=== PATIENT | female | born 1970 | race Caucasian/White ===

== ENCOUNTER 2024-07-24 20:00 | Emergency (ER) | payer OTHER, SELFPAY ==
[2024-07-24] VITALS (15 sets, daily range): BP systolic 117–135; BP diastolic 70–92; PULSE 65–81; RESP 13–20; TEMP 36.9; O2SAT 95–100
--- NOTE | ~2024-07-24 | XR_ITS ---
XR chest 2V DATE: 07/24/2024 20:32 INDICATION: Chest pain, shortness of breath TECHNIQUE: 2 views COMPARISON: None FINDINGS: Approximately 1.3 cm soft tissue density overlies the right infrahilar area. CT thorax with IV contrast material is recommended for further evaluation. Otherwise no pulmonary infiltrate or consolidation, pleural effusion or pulmonary vascular congestion or pneumothorax is detected. Heart size is normal. No hilar or mediastinal enlargement is noted otherwise. Included skeletal structures are unremarkable. Status post cholecystectomy. IMPRESSION: Approximately 1.3 cm right infrahilar soft tissue mass density Reviewed, dictated and finalized at location A. CAR DRIVER
--- NOTE | ~2024-07-24 | CT_ITS ---
EXAMINATION: CTA chest PE protocol DATE: 07/24/2024 22:06 INDICATION: Chest pain. TECHNIQUE: Computed tomography angiography (CTA) of the chest was performed with 100 mL Omnipaque-350 intravenous contrast timed to evaluate the pulmonary arteries. Coronal maximum intensity projection 3D-reconstructions were created by the technologist. Automated exposure control and iterative reconst ruction technique were employed. The dose-length product was 393.72 mGy-cm. COMPARISON: Chest 2 views 07/24/2024 FINDINGS: There is a 13 mm nodule in right lower lobe with small surrounding satellite nodules. There is right hilar lymphadenopathy with the largest node measuring 15 x 11 mm. No pleural effusion. The heart size is normal. No pericardial effusion. There is no pulmonary embolus. There is a small slidin g hiatal hernia. There are changes of cholecystectomy. IMPRESSION: 1. 13 mm nodule in right lung lower lobe, which may be granulomatous disease or primary bronchogenic carcinoma. PET/CT or 3-month noncontrast low-dose chest CT is recommended. 2. Mild right hilar lymphadenopathy. 3. No pulmonary embolus. Reviewed, dictated and finalized at location A. ASOUND APPLICATIONS SPECIALIST IMPRESSION: 1. 13 mm nodule in right lung lower lobe, which may be granulomatous disease or primary bronchogenic carcinoma. PET/CT or 3-month noncontrast low-dose chest C T is recommended. 2. Mild right hilar lymphadenopathy. 3. No pulmonary embolus.
--- NOTE | 2024-07-24 20:07 | ECG_ITS ---
Test Date: 2024-07-24 20:11:58 Measurements Intervals [place] Rate: 72 P: 34 [place]: 133 QRS: 11 QRSD: 87 T: 12 QT: 408 QTc: 449 Interpretive Statements SINUS RHYTHM NONSPECIFIC T-WAVE ABNORMALITY No previous ECG available for comparison Electronically Signed On 07-24-2024 21:05:22 SALES OFFICER by Anastasia Culver M.D.
[2024-07-24 20:17] LABS: Basophils Absolute Auto 0.1 K/mm3 (0.0-0.1); Basophils Percent Auto 0.3 % (0.2-1.2); Eosinophils Percent Auto 0.2 % (0-4.4); Hematocrit 43.9 % (37.0-47.0); Hemoglobin 14.4 g/dL (12.0-15.0); Immature Granulocyte Absolute 0.11 K/mm3 (0.00-0.031); Immature Granulocyte Percent A 0.6 % (0-0.5); Lymphocytes Absolute Auto 0.31 K/mm3 (0.9-3.2); Lymphocytes Percent Auto 1.7 % (18.3-44.2); Mean Corpuscular HGB Conc 32.8 g/dl (32-36); Mean Corpuscular Hemoglobin 26.5 pg (26-34); Mean Corpuscular Volume 80.8 fl (80-100); Mean Platelet Volume 10.3 fl (7.4-10.4); Monocytes Absolute Auto 0.9 K/mm3 (0.1-0.6); Monocytes Percent Auto 5.1 % (2.6-8.5); Neutrophils Absolute Auto 16.9 K/mm3 (1.3-6.7); Neutrophils Percent Auto 92.1 % (45.5-73.1); Platelet Count Result 204 k/mm3 (150-375); Red Blood Count 5.43 M/mm3 (4.2-5.4); Red Cell Distribution Width 22.4 % (11.5-14.5); White Blood Count 18.3 K/mm3 (4.5-10.0)
--- NOTE | 2024-07-24 20:20 | ED.GENADULT ---
HPI - General Adult General Chief complaint: Nausea/Vomiting/Diarrhea Stated complaint: n/v,chest discomfort History of Present Illness HPI narrative: 54-year-old female presents emergency department for evaluation for nausea vomiting abdominal cramping and chest pain. Patient states the chest pain has been ongoing for the last 6 weeks and patient is having follow-up with her primary care physician for this. Patient states the nausea and vomiting started today. Patient does report associated abdominal cramping. Related Data Home Medications ?Medication ?Instructions ?Recorded ?Confirmed ?Last Taken ?Type amlodipine 5 mg tablet 5 mg PO DAILY 07/24/24 07/24/24 Unknown History atenolol 25 mg tablet 25 mg PO DAILY 07/24/24 07/24/24 Unknown History atorvastatin 20 mg tablet (Lipitor) 20 mg PO DAILY 07/24/24 07/24/24 Unknown History celecoxib 200 mg capsule (Celebrex) 200 mg PO DAILY 07/24/24 07/24/24 Unknown History cholecalciferol (vitamin D3) 50 50 mcg PO DAILY 07/24/24 07/24/24 Unknown History mcg (2,000 unit) capsule citalopram 20 mg tablet 20 mg PO DAILY 07/24/24 07/24/24 Unknown History ferrous sulfate 325 mg (65 mg 325 mg PO BID 07/24/24 07/24/24 Unknown History iron) tablet hydrochlorothiazide 25 mg tablet 25 mg PO DAILY 07/24/24 07/24/24 Unknown History loratadine 10 mg tablet (Claritin) 10 mg PO DAILY 07/24/24 07/24/24 Unknown History omeprazole magnesium 20 mg 20 mg PO DAILY 07/24/24 07/24/24 Unknown History tablet,delayed release (Prilosec OTC) Allergies Allergy/AdvReac Type Severity Reaction Status Date / Time cefaclor (From Ceclor) Allergy Mild Hives Verified 07/24/24 20:08 cephalexin (From Keflex) Allergy Mild Hives Verified 07/24/24 20:08 Sulfa (Sulfonamide Allergy Mild Hives Verified 07/24/24 20:08 Antibiotics) Review of Systems Review of Systems: All systems reviewed & are unremarkable except as noted in HPI and below Exam Narrative: APPEARANCE: Uncomfortable appearing HEAD: normocephalic, atraumatic. EYES: PERRLA/EOMI, conjunctivae clear. NOSE: Normal no drainage EARS:TMS clear with good light reflex. THROAT: Pharynx clear, no exudate. NECK: Supple. No adenopathy, no masses. RESPIRATORY: Airway patent, respirations nonlabored. Clear to auscultation bilaterally, no rales, rhonchi, wheezing. CARDIOVASCULAR: Regular rate and rhythm without murmurs rubs or gallops. ABDOMINAL: Soft, nontender, nondistended, normal bowel sounds MUSCULOSKELETAL: Moves all extremities. Strength/ROM intact, No edema, No calf tenderness. NEURO: Alert. Cranial nerves II through XII intact. Grossly intact SKIN: Warm, dry. Normal Color Course Vital Signs Vital signs: Vital Signs Temperature 98.5 F 07/24/24 19:59 Pulse Rate 81 07/24/24 19:59 Respiratory Rate 20 07/24/24 19:59 Blood Pressure 117/92 H 07/24/24 19:59 Pulse Oximetry 99 07/24/24 19:59 Oxygen Delivery Room Air 07/24/24 19:59 Temperature 98.5 F 07/24/24 19:59 Pulse Rate 78 07/25/24 01:42 Respiratory Rate 18 07/25/24 01:42 Blood Pressure 116/61 07/25/24 01:42 Pulse Oximetry 98 07/25/24 01:42 Oxygen Delivery Room Air 07/24/24 21:41 Medical Decision Making [facility] Narrative Medical decision making narrative: 54-year-old female presents emergency department for evaluation for chest pain lightheaded dizziness. Patient states she has an ongoing workup for her chest pain. Patient is afebrile but does have a leukocytosis 18.3. Hemoglobin of 14.4. Patient's D-dimer was elevated. CTA chest shows no PE but does show a right lobe nodularity potentially infectious versus neoplastic with a right hilar adenopathy no other acute findings. Patient was aware of the pulmonary nodule and has already had a PET scan for this. Patient was started on antibiotics in the emergency department. Patient family updated on the results of the workup patient was comfortable with plan for treatment and discharge. Differential Diagnosis Differential Diagnosis: ACS, STEMI, NSTEMI, pulmonary embolism, pneumothorax Vital Signs Vital Signs: Vital Signs Temperature 98.5 F 07/24/24 19:59 Pulse Rate 81 07/24/24 19:59 Respiratory Rate 20 07/24/24 19:59 Blood Pressure 117/92 H 07/24/24 19:59 Pulse Oximetry 99 07/24/24 19:59 Oxygen Delivery Room Air 07/24/24 19:59 Temperature 98.5 F 07/24/24 19:59 Pulse Rate 78 07/25/24 01:42 Respiratory Rate 18 07/25/24 01:42 Blood Pressure 116/61 07/25/24 01:42 Pulse Oximetry 98 07/25/24 01:42 Oxygen Delivery Room Air 07/24/24 21:41 Lab Data Lab results reviewed: Yes I reviewed the patient's lab results. 07/24/24 20:10 07/24/24 20:10 Labs: Lab Results 07/24/24 07/24/24 Range/Units 20:10 23:43 WBC 18.3 H (4.5-10.0) K/mm3 RBC 5.43 H (4.2-5.4) M/mm3 Hgb 14.4 (12.0-15.0) g/dL Hct 43.9 (37.0-47.0) % MCV 80.8 (80-100) fl MCH 26.5 (26-34) pg MCHC 32.8 (32-36) g/dl RDW 22.4 H (11.5-14.5) % Plt Count 204 (150-375) k/mm3 MPV 10.3 (7.4-10.4) fl Immature Gran % (Auto) 0.6 H (0-0.5) % Neut % (Auto) 92.1 H (45.5-73.1) % Lymph % (Auto) 1.7 L (18.3-44.2) % [place] % (Auto) 5.1 (2.6-8.5) % Eos % (Auto) 0.2 (0-4.4) % Baso % (Auto) 0.3 (0.2-1.2) % Lymph # (Auto) 0.31 L (0.9-3.2) K/mm3 [place] # (Auto) 0.9 H (0.1-0.6) K/mm3 Eos # (Auto) 0.0 (0-0.3) K/mm3 Baso # (Auto) 0.1 (0.0-0.1) K/mm3 Abs Immat Gran (auto) 0.11 H (0.00-0.031) K/mm3 Absolute Neuts (auto) 16.9 H (1.3-6.7) K/mm3 Absolute Nucleated RBC 0.000 (0.0-0.012) K/mm3 Nucleated RBC % 0.0 (0.0-0.2) % Platelet Estimate Adequate (Adequate) Anisocytosis 1+ Spherocytes 1+ Schistocytes Rare PT 12.8 (11.1-14.7) Seconds INR 0.9 APTT 21.8 L (22.3-36.8) Seconds D-Dimer 0.65 H (<0.48) ug/mL Sodium 137 (137-145) mmol/L Potassium 3.3 L (3.4-5.0) mmol/L Chloride 103 (98-107) mmol/L Carbon Dioxide 25 (22-30) mmol/L Anion Gap 9 (4-12) mmol/L BUN 19 H (7-17) mg/dL Creatinine 0.80 (0.7-1.0) mg/dL Estim Creat Clear Calc 79 ml/min Estimated GFR > 60 (59 - ) Glucose 190 H (65-110) mg/dL Calcium 9.5 (8.4-10.2) mg/dL Total Bilirubin 1.0 (0.2-1.3) mg/dL AST 40 H (14-36) U/L ALT 36 H (6-35) U/L Alkaline Phosphatase 118 (38-126) U/L Troponin I < 0.012 < 0.012 (0.000-0.034) ng/mL Total Protein 8.0 (6.3-8.2) g/dL Albumin 4.7 (3.5-5.1) g/dL Lipase 96 (23-300) U/L Imaging Data Radiologist's impression: Impressions Chest X-Ray 07/24/24 20:36 IMPRESSION: Approximately 1.3 cm right infrahilar soft tissue mass density Discharge Plan Discharge Clinical Impression: Hilar mass Patient Disposition: Home, Self-Care Condition: Stable Instructions: Antibiotic Form Additional Instructions: Have close follow-up with your primary care physician for further workup the hilar mass noted on the CT scan today. Antibiotics as directed until completed. If you have any worsening symptoms then please call or return to the emergency department. Patient Language: Greenlandic Prescriptions: New levofloxacin 750 mg tablet 750 mg PO DAILY 7 Days Qty: 7 0RF No Action atorvastatin [Lipitor] 20 mg tablet 20 mg PO DAILY omeprazole magnesium [Prilosec OTC] 20 mg tablet,delayed release (DR/EC) 20 mg PO DAILY citalopram 20 mg tablet 20 mg PO DAILY celecoxib [Celebrex] 200 mg capsule 200 mg PO DAILY cholecalciferol (vitamin D3) 50 mcg (2,000 unit) capsule 50 mcg PO DAILY loratadine [Claritin] 10 mg tablet 10 mg PO DAILY hydrochlorothiazide 25 mg tablet 25 mg PO DAILY ferrous sulfate 325 mg (65 mg iron) tablet 325 mg PO BID amlodipine 5 mg tablet 5 mg PO DAILY atenolol 25 mg tablet 25 mg PO DAILY Follow-up/Referrals: PHYSICIAN NOT ON STAFF,NONSTAFF [Primary Care Provider] -
[2024-07-24 20:27] LABS: Alanine Aminotransferase 36 U/L (6-35); Albumin Level 4.7 g/dL (3.5-5.1); Alkaline Phosphatase 118 U/L (38-126); Anion Gap 9 mmol/L (4-12); Aspartate Amino Transferase 40 U/L (14-36); Blood Urea Nitrogen 19 mg/dL (7-17); Calcium 9.5 mg/dL (8.4-10.2); Carbon Dioxide 25 mmol/L (22-30); Chloride 103 mmol/L (98-107); Estimated CRCL calculation 79 ml/min; Estimated Glomerular Filt Rate > 60; Glucose 190 mg/dL (65-110); Lipase 96 U/L (23-300); Potassium 3.3 mmol/L (3.4-5.0); Sodium 137 mmol/L (137-145)
[2024-07-24] MEDS: SODIUM CHLORIDE 0.9% IV 1,000 ML 999 ML IV CONT (20:32)
[2024-07-24 20:33] LABS: INR 0.9; Partial Thromboplastin Time 21.8 Seconds (22.3-36.8); Prothrombin Time 12.8 Seconds (11.1-14.7)
[2024-07-24] MEDS: ONDANSETRON INJ 4 MG/2 ML VIAL IV PUSH (20:33)
[2024-07-24] MEDS: HYDROmorphone HCL INJ (*CRX) 1 MG/ML SYR 0.5 MG IV PUSH (20:36)
[2024-07-24 20:47] LABS: Troponin I < 0.012 ng/mL (0.000-0.034)
[2024-07-24 20:49] LABS: Platelet Estimate Adequate (Adequate); Schistocytes Rare
[2024-07-24 20:50] LABS: Anisocytosis 1+; Spherocytes 1+
[2024-07-24 21:13] LABS: D Dimer 0.65 ug/mL (<0.48)
--- NOTE | 2024-07-24 21:50 | PC.NURSE ---
Patient taken to CT via stretcher at this time.
--- NOTE | 2024-07-24 23:35 | ECG_ITS ---
Test Date: 2024-07-24 23:38:08 Measurements Intervals [place] Rate: 66 P: 16 [place]: 121 QRS: 5 QRSD: 97 T: 5 QT: 425 QTc: 447 Interpretive Statements SINUS RHYTHM NONSPECIFIC T-WAVE ABNORMALITY Compared to ECG 07/24/2024 20:11:58 No significant changes Electronically Signed On 07-25-2024 10:19:00 AIR EXPORT LOGISTICS MANAGER by Anastasia Culver M.D.
--- NOTE | 2024-07-24 23:57 | PC.NURSE ---
Patient c/o lightheadedness and nausea. ERP notified, VORB to give 4mg Zofran IVP.
[2024-07-25 00:03] VITALS: PULSE 64; RESP 12; O2SAT 96
[2024-07-25 00:10] LABS: Troponin I < 0.012 ng/mL (0.000-0.034)
[2024-07-25] MEDS: ONDANSETRON INJ 4 MG/2 ML VIAL IV PUSH (00:10)
[2024-07-25 00:41] VITALS: PULSE 63; RESP 14; O2SAT 96
[2024-07-25 00:45] VITALS: PULSE 61; RESP 15; O2SAT 95
[2024-07-25 01:10] VITALS: PULSE 66; RESP 16; O2SAT 96
[2024-07-25 01:15] VITALS: PULSE 62; RESP 14; O2SAT 94
[2024-07-25 01:42] VITALS: BP 116/61; PULSE 78; RESP 18; O2SAT 98
== END 2024-07-25 01:44 | disposition home or self-care (01) ==
PROVIDERS: Emergency Provider Emergency Medicine
DX: R22.2 Localized swelling, mass and lump, trunk (principal)
CPT/HCPCS: 36415; 71046; 71275; 80053; 83690; 84484; 85025; 85380; 85610; 85730; 93005; 96361; 96374; 96375; 96376; 99284; J1171; J2405; J7030; Q9967

== ENCOUNTER 2024-12-26 20:44 | Emergency (ER) | payer OTHER, SELFPAY ==
[2024-12-26] VITALS (9 sets, daily range): BP systolic 127–144; BP diastolic 70–82; PULSE 68–76; RESP 9–17; TEMP 36.7; O2SAT 97–100
--- NOTE | ~2024-12-26 | XR_ITS ---
XR ankle LT min 3V Ordering provider: Lyudmila De Leon MD History: . injury . Comparison: None. FINDINGS: BONES: No acute fracture or dislocation. JOINT SPACES: The ankle mortise is normal. SOFT TISSUES: soft tissue swelling over the lateral malleolus. IMPRESSION: No acute osseous abnormality left ankle. Reviewed, dictated and finalized at location A.
--- NOTE | ~2024-12-26 | XR_ITS ---
XR tibia fibula LT 2V Ordering provider: Lyudmila De Leon MD History: . injury . Comparison: None. FINDINGS: BONES: Fracture in the proximal left fibula. JOINT SPACES: Normal. SOFT TISSUES: Normal. IMPRESSION: Fracture in the proximal left fibula. No other definite fractures seen. Reviewed, dictated and finalized at location A.
--- NOTE | 2024-12-26 21:33 | PC.NURSE ---
Pt to Xray at this time.
--- OUTSIDE RECORDS SUMMARY | 2024-12-26 23:30 | XMS_ITS | Encounter Summary ---
Author Organization [facility] Address [address] [place] [address] Phone Care Team Providers Care Tetryl Blender Operator Name Role Phone Rolly Conley MD Primary Care Provider [phone] Encounter Details Date Type Department Care Team (Late st Contact Info) Description 07/29/2024 Telephone [facility] Cardiology [address] [place], [place] [address] Leanne Devlin MD [address] [place], [place] [id number] Social History Tobacco Use Types Packs/Day Years Used Date Smoking Tobacco: Never Smokeless Tobacco: Never Alcohol Use Standard Drinks/Week Comments Never 0 (1 standard drink = 0.6 oz pur e alcohol) Comments Unknown Sex and Gender Information Value Date Recorded Sex Assigned at Not on file Legal Sex Female 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 L MAINTENANCE TECHNICIAN * Telephone Encounter - Estefani Laguna RN - 07/29/2024 1:05 PM CST ----- Message from Leanne Devlin sent at 07/29/2024 12:18 PM HOTEL MAINTENANCE TECHNICIAN ----- Potassium is very low. I recommend increasing potassium intake from the diet like eating bananas and potatoes. Would she be able to swallow pills? If yes, would recommend ordering oral KCL 20meq. L MAINTENANCE TECHNICIAN documented in this encounter Plan of Treatment Upcoming Encounters Date Type Department Care Team (Late st Contact Info) Description 01/06/2025 1:20 PM CDT Consult Otolaryngology [facility] [address] [place] [address] Stephanie Jackson PA [address] [place], [place] [id number] documented as of this encounter Visit Diagnoses Diagnosis Hypokalemia- Primary Hypopotassemia documented in this encounter Care Teams Tetryl Blender Operator Relationship Specialty Start Date End Date Rolly Conley MD [facility] [address] [place] [address] PCP - General 05/26/00 documented as of this encounter
--- OUTSIDE RECORDS SUMMARY | 2024-12-26 23:31 | XMS_ITS | Encounter Summary ---
Author Organization [facility] Address [address] [place] [address] Phone Care Team Providers Care Back Joiner Name Role Phone Rolly Conley MD Primary Care Provider [phone] Encounter Details Date Type Department Care Team (Late Contact Info) Description 08/18/2024 Telephone [facility] Procedure Cath [address] [place], [place] [address] Tariq Callejas MB BS [address] [place], [place] [id number] Social History Tobacco Use Types Packs/Day Years Used Date Smoking Tobacco: Never Smokeless Tobacco: Never Alcohol Use Standard Drinks/Week Comments Never 0 (1 standard drink = 0.6 oz pur e alcohol) Comments Unknown Sex and Gender Information Value Date Recorded Sex Assigned at Not on file Legal Sex Female 8:26 AM FIELD SERVICES MANAGER Gender Identity Not on file Sexual Orientation Not on file documented as of this encounter Plan of Treatment Upcoming Encounters Date Type Department Care Team (Late Contact Info) Description 01/06/2025 1:20 PM CDT Consult Otolaryngology [address] [place] [id number] [place] [address] [place] [id number] documented as of this encounter Visit Diagnoses Not on filedocumented in this encounter Care Teams Back Joiner Relationship Specialty Start Date End Date Rolly Conley MD [facility] [address] [place] [address] PCP - General 05/26/00 documented as of this encounter
--- OUTSIDE RECORDS SUMMARY | 2024-12-26 23:31 | XMS_ITS | Clinical Summary ---
Author Organization [facility] Address [address] [place] [address] Phone Care Team Providers Care Fly Rail Operator Name Role Phone Eliza Conley MD Primary Care Provider [phone] Allergies Active Allergy Reactions Criticality Noted Date Comments Cephalosporins Hives 07/29/2024 Cephalexin Hives 07/29/2024 Sulfa (Sulfonamide Antibiotics) Hives 07/05 Medications amLODIPine (NORVASC) 5 mg tablet Take 5 mg by mouth every day 07/06/2024 Active atenoloL (TENORMIN) 25 mg tablet Take 25 mg by mouth every day 06/14/2024 Active atorvastatin (LIPITOR) 20 mg tablet Take 20 mg by mouth every day 07/01/2024 Active citalopram (CELEXA) 20 mg tablet Take 20 mg by mouth every day 07/04/2024 Active ferrous sulfate 325 mg (65 mg iron) tablet Take 325 mg by mouth 2 (two) times daily 06/14/2024 Active hydroCHLOROthia zide 25 mg tablet Take 25 mg by mouth every day 07/06/2024 Active levoFLOXacin (LEVAQUIN) 750 mg tablet Take 750 mg by mouth every day 07/25/2024 Active predniSONE 10 mg tablet Take 5 mg by mouth every day 07/26/2024 Active budesonide-glyc opyr-formoterol (BREZTRI AEROSPHERE) 160-9-4.8 mcg/actuation inhaler Take 2 puffs inhaled by mouth 2 (two) times daily Active cholecalciferol (VITAMIN D3) 25 mcg (1,000 unit) capsule Take 50 Units by mouth every day Active aspirin enteric coated 81 mg tablet, delayed releaseIndicati ons:Abnormal stress test Take 1 tablet (81 mg total) by mouth every morning 90 tablet 3 07/29/2024 5 Active potassium chloride (KLOR-CON) 20 mEq extended release tabletIndicatio ns:Hypokalemia Take 1 tablet (20 mEq total) by mouth every day 90 tablet 3 07/29/2024 5 Active Active Problems No known active problems Encounters Date Type Department Care Team Description 12/11/2024 Transcribe Orders Khalif Montgomery MD HECTOR (obstructive sleep apnea) (Primary Dx) 12/09/2024 Consult [facility] Team Leader/Research Psychologist Provider, Interface Default 10/01/2024 12:15 AM MACHINE STAMPER Lab Only [facility] Specimen Only Lab [address] [place] [address] Monica Senior MD Gastroesophageal reflux disease, unspecified whether esophagitis present (Primary Dx); Screening for colon cancer from Last 3 Months Immunizations Immunization Administration Dates Next Due Influenza (Flu Quad PF) 05/13/2008,06/06/2005 TB-PPD 05/20/2007 Social History Tobacco Use Types Packs/Day Years Used Date Smoking Tobacco: Never Smokeless Tobacco: Never Tobacco Cessation:Counseling Given: No Alcohol Use Standard Drinks/Week Comments Never 0 (1 standard drink = 0.6 oz pur e alcohol) Comments Unknown Sex and Gender Information Value Date Recorded Sex Assigned at Not on file Legal Sex Female 8:26 AM MACHINE STAMPER Gender Identity Not on file Sexual Orientation Not on file Last Filed Vital Signs Vital Sign Reading Time Taken Comments Blood Pressure 116/56 08/18/2024 12:00 PM MACHINE STAMPER Pulse 61 08/18/2024 6:54 AM MACHINE STAMPER Temperature 36.7 C (98 F) 08/18/2024 12:00 PM MACHINE STAMPER Respiratory Rate 17 08/18/2024 12:00 PM MACHINE STAMPER Oxygen Saturation 96% 08/18/2024 12:00 PM MACHINE STAMPER Inhaled Oxygen Concentration - - Weight 98.9 kg (218 lb) 08/18/2024 6:55 AM MACHINE STAMPER Height 162.6 cm (5' 4.02 ) 08/18/2024 6:55 AM CS T Body Mass Index 37.4 08/18/2024 6:55 AM MACHINE STAMPER Plan of Treatment Upcoming Encounters Date Type Department Care Team (Late st Contact Info) Description 01/06/2025 1:20 PM CDT Consult Otolaryngology [facility] [address] [place] [address] Stephanie Jackson PA [address] [place] [address] Health Maintenance Due Date Last Done Comments Diagnostic Colonoscopy 1971 MMR Vaccines (1 of 1 - Standard series) 02/28/1972 Depression Screening 1983 DTaP/Tdap/Td Vaccines (1 - Tdap) 1990 Hepatitis B Vaccines (1 of 3 - 19+ 3-dose series) 1990 Zoster (Shingles) Vaccine (1 of 2) 1990 Lipid Panel 1991 Pap Smear 02/28/1992 Cervical Cancer Screening 2001 HPV/Co-Testing 2001 Breast Cancer Screening 2011 CT Colonography 02/28/2016 Colorectal Cancer Screening 02/28/2016 FIT-DNA (Cologuard) 02/28/2016 Fecal Immunochemical Testing (FIT) 02/28/2016 Fecal Occult Blood (FOBT) 02/28/2016 Flexible Sigmoidoscopy 02/28/2016 Screening Colonoscopy 02/28/2016 HCPOA Document on File 2021 Pneumococcal Vaccines (50+) (1 of 1 - PCV) 2021 COVID-19 Vaccine ( - 2023-2 5 season) 2024 05/06/2022, 10/11/2020, 09/22/2020 Influenza Vaccine (Season Ended) 2025 05/13/2008, 06/06/2005 Screening for Diabetes 08/18/2027 , 07/29/2024, 05/25/2010 HIB Vaccines Aged Out No longer eligi ble based on patient's age to complete this topic HPV Vaccines Aged Out No longer eligi ble based on patient's age to complete this topic Hepatitis A Vaccines Aged Out No long er eligible based on patient's age to complete this topic IPV Vaccines Aged Out No longer eligi ble based on patient's age to complete this topic Meningococcal B Vaccine Aged Out No l onger eligible based on patient's age to complete this topic Meningococcal Vaccine (ACWY) Aged Out No longer eligible based on patient's age to complete this topic Rotavirus Vaccines Aged Out No longer eligible based on patient's age to complete this topic Procedures Procedure Name Priority Date/Time Associated Diagnosis Comments SURGICAL PATHOLOGY ([facility]) Routine 10/01/2024 Gastroesophageal reflux disease, unspecified whether esophagitis present Screening for colon cancer BASIC METABOLIC PANEL STAT 08/18/2024 7:10 AM MACHINE STAMPER Abnormal stress test from Last 3 Months or Most Recently Relevant to Health Maintenance Results * SURGICAL PATHOLOGY ([facility]) (10/01/2024) REPORT COMPONENT RUN DATE: 10/05/24 [facility] *LIVE* PAGE 1 RUN TIME: 8929 Specimen Inquiry PATIENT: SHIVAM PRABHAKAR ACCT: [id number] LOC: [place] U: [id number] AGE/SX: 54/F ROOM: RE10/04/[address]: MONICA SENIOR : 1970 BED: DIS: STATUS: REG ELSIE TLOC: SPEC : [id number] RECD: 10/04/24 STATUS: ELSA BENTLEY NUM: [id number] CORAL: 10/01/24- SUBM DR: MONICA SENIOR ENTERED: 10/04/24-1531 SP TYPE: SURGICAL OTHR DR: ELIZA CONLEY ORDERED: HE STAIN, GROSS/MICRO L4/6 CODES: [id number] - Inflammation, N [id number] - Cecum Gastric Hepatic flexure DISTAL ESOPHAGU PROXIMAL ESOPHA COPIES TO: ELIZA CONLEY [facility] [place] [address] [place] [address] ([phone] MONICA SENIOR [address] [place] [address] ([phone] KIEL PROCEDURES: HE STAIN (10/04/24-1531) GROSS/MICRO L4 (10/04/24) TISSUES: 1. Gastric - BIOPSIES 2. PROXIMAL ESOPHAGUS - BIOSPIES 3. DISTAL ESOPHAGUS - BIOPSIES 4. Gastric - POLYP 5. Hepatic flexure - POLYP 6. Cecum - POLYP CLINICAL HISTORY The patient is a 54-year-old female with gastroesophageal reflux disease who undergoes endoscopy with findings including hiatal hernia, gastritis, gastric polyp, bile stasis, and colon polyps. GROSS DESCRIPTION (1): Received in formalin, labeled with the patient's name and gastric biopsy , is a 0.2 cm fragment of padilla tissue which is submitted in toto in one cassette. (2): Received in formalin, labeled with the patient's name and proximal esophagus , are multiple fragments of padilla tissue aggregating to approximately 0.5 cm. The specimen is submitted in toto in one GROSS DESCRIPTION (Continued) cassette. (3): Received in formalin, labeled with the patient's name and distal esophagus , are multiple fragments of padilla tissue aggregating to approximately 0.4 cm. The specimen is submitted in toto in one cassette. (4): Received in formalin, labeled with the patient's name and gastric polyp , are multiple fragments of padilla tissue aggregating to approximately 0.3 cm. The specimen is submitted in toto in one cassette. (5): Received in formalin, labeled with the patient's name and hepatic flexure polyp , is a 0.5 cm fragment of padilla tissue which is submitted in toto in one cassette. (6): Received in formalin, labeled with the patient's name and cecal polyp , are multiple fragments of padilla tissue aggregating to approximately 0.8 cm. The specimen is submitted in toto in one cassette. [facility] 10/04/2024 INTERPRETATION (1): STOMACH, BIOPSY: MILD VASCULAR CONGESTION. NEGATIVE FOR INTESTINAL METAPLASIA, DYSPLASIA, OR MALIGNANCY. NEGATIVE FOR HELICOBACTER PYLORI ORGANISMS BY MORPHOLOGY. (2): PROXIMAL ESOPHAGUS, BIOPSIES: SQUAMOUS EPTHELIUM WITH NO SIGNIFICANT HISTOPATHOLOGIC ABNORMALITIES. NEGATIVE FOR INTESTINAL METAPLASIA, DYSPLASIA, OR MALIGNANCY. NEGATIVE FOR MORPHOLOGIC FEATURES OF EOSINOPHILIC ESOPHAGITIS. (3): DISTAL ESOPHAGUS, BIOPSIES: SQUAMOUS EPTHELIUM WITH NO SIGNIFICANT HISTOPATHOLOGIC ABNORMALITIES. NEGATIVE FOR INTESTINAL METAPLASIA, DYSPLASIA, OR MALIGNANCY. NEGATIVE FOR MORPHOLOGIC FEATURES OF EOSINOPHILIC ESOPHAGITIS. (4): GASTRIC POLYP, BIOPSY: POLYPOID GASTRIC MUCOSA WITH EDEMA, VASCULAR CONGESTION, AND MILD CHRONIC INFLAMMATION. NEGATIVE FOR INTESTINAL METAPLASIA, DYSPLASIA, OR MALIGNANCY. (5): COLON, HEPATIC FLEXURE, POLYPECTOMY: TUBULAR ADENOMA. NEGATIVE FOR HIGH-GRADE DYSPLASIA. (6): CECUM, POLYPECTOMY: SERRATED POLYP, SUGGESTIVE OF A SESSILE SERRATED LESION. NEGATIVE FOR CYTOLOGIC DYSPLASIA. CPT CODES: [id number] x 6 MICROSCOPIC DESCRIPTION A microscopic examination is performed by Dr. Kentrell Godfrey. OUTSIDE VENDOR ORD ID [id number] SPECIMEN SUBMITTED (1): GASTRIC BIOPSY (2): PROXIMAL ESOPHAGEAL BIOPSY (3): DISTAL ESOPHAGEAL BIOPSY (4): GASTRIC POLYP BIOPSY (5): HEPATIC FLEXURE COLON POLYP (6): CECAL POLYP Signed (signatur e on file) KENTRELL GODFREY 10/05/24 1338 END OF REPORT [facility] 10/01/2024 10/04/2024 3:3 1 PM MACHINE STAMPER us Monica Senior MD [facility] - PATHOLOGY Final Result [facility] [address] [place] [address], [place] [phone] * (ABNORMAL) BASIC METABOLIC PANEL (08/18/2024 7:10 AM MACHINE STAMPER) CALCIUM 9.5 8.9 - 10.6 mg/dL [facility] GLUCOSE 143(H) 74 - 100 mg/dL [facility] BUN 11 10 - 20 mg/dL [facility] CREATININE 0.84 0.55 - 1.02 mg/dL [facility] SODIUM 141 136 - 145 mmol/L [facility] POTASSIUM 4.2 3.5 - 5.1 mmol/L [facility] CHLORIDE 106 98 - 107 mmol/L [facility] CO2 24.0 22.0 - 29.0 mmol/L [facility] GFR: CKD-EPI 2020 CREAT 83 arbitrary unit [facility] Comment: eGFR of 90 or higher is in the normal range eGFR of 60-89 may mean early-stage kidney disease eGFR of 15-59 may mean kidney disease eGFR below 15 may mean kidney failure NOTE: The GFR estimate is reported in ml/min/1.73 square meters. Effective 01/02/23 the reported GFR estimate is calculated using the CKD-EPI 2020 equation and is intended only for the assessment of chronic kidney disease. [facility], [address] [place] [id number] 08/18/2024 7:10 AM MACHINE STAMPER 08/18/2024 7:19 AM MACHINE STAMPER us Leanne Devlin MD HEM/CHEM/IMMUN-BLOOD F inal Result [facility] [address] [place] [address], [place] from Last 3 Months or Most Recently Relevant to Health Maintenance Insurance [employer] (POS, PPO, etc) Address: [address] [address] Advance Directives For more information, please contact: [phone] * Attempt CPR / Full Treatment (Latest Code Status on File) Date Activated Date Inactivated Comments 08/18/2024 8:47 AM 08/18/2024 2:01 PM Care Teams Fly Rail Operator Relationship Specialty Start Date End Date Eliza Conley MD [facility] [place] [address] [place] [address] PCP - General 05/26/00
--- OUTSIDE RECORDS SUMMARY | 2024-12-26 23:31 | XMS_ITS | Encounter Summary ---
Author Organization [facility] Address [address] [place] [address] Phone Care Team Providers Care Prefabricator Name Role Phone Rolly Conley MD Primary Care Provider [phone] Encounter Details Date Type Department Care Team (Late st Contact Info) Description 08/30/2024 Telephone [facility] Cardiology [address] [place], [place] [phone] Leanne Devlin MD [address] [place], [place] [id number] Social History Tobacco Use Types Packs/Day Years Used Date Smoking Tobacco: Never Smokeless Tobacco: Never Alcohol Use Standard Drinks/Week Comments Never 0 (1 standard drink = 0.6 oz pur e alcohol) Comments Unknown Sex and Gender Information Value Date Recorded Sex Assigned at Not on file Legal Sex Female 8:26 AM UNIVERSITY MANAGER Gender Identity Not on file Sexual Orientation Not on file documented as of this encounter Miscellaneous Notes * Telephone Encounter - Ruby Fang - 09/09/2024 2:33 PM CST NO PA REQUIRED. PLEASE SCHEDULE.THANKS. ERSITY MANAGER * Telephone Encounter - Davina Montaño - 09/09/2024 10:20 AM CST Please authorize pa for [facility]. ERSITY MANAGER * Telephone Encounter - Wanda Alberto RN - 08/30/2024 4:39 PM UNIVERSITY MANAGER Faxed. ERSITY MANAGER * Telephone Encounter - Flori Connor - 08/30/2024 4:31 PM CST Pt called to cancel Echo and to have the order sent to [facility]. She stated Dr Devlin has released her from her care. The fax number is [phone] ERSITY MANAGER ERSITY MANAGER documented in this encounter Plan of Treatment Upcoming Encounters Date Type Department Care Team (Late st Contact Info) Description 01/06/2025 1:20 PM CDT Consult Otolaryngology [facility] [address] [place], [place] [phone] Stephanie Jackson PA [address] [place], [place] [phone] documented as of this encounter Visit Diagnoses Not on filedocumented in this encounter Care Teams Prefabricator Relationship Specialty Start Date End Date Rolly Conley MD [facility] [address] [place] [address] PCP - General 05/26/00 documented as of this encounter
[2024-12-27 00:01] VITALS: BP 124/69; PULSE 67; RESP 10; O2SAT 96
[2024-12-27 00:16] VITALS: BP 112/67; PULSE 70; RESP 11; O2SAT 100
[2024-12-27] MEDS: HYDROcodone/acetaminophen (*CRX) 5-325 MG TABLET 1 TAB PO ×2 (00:41→02:16)
[2024-12-27] MEDS: ONDANSETRON INJ 4 MG/2 ML VIAL IV PUSH (00:41)
--- NOTE | 2024-12-27 01:52 | ED_ITS ---
HPI - Extremity Injury (Lower) General Chief Complaint: Extremity Injury, Lower <Suzanne Mccollum APRN - Last Filed: 12/27/24 02:09> Stated Complaint: fall/ankle pain <Suzanne Mccollum APRN - Last Filed: 12/27/24 02:09> Time Seen by Provider: 12/26/24 23:09 <Suzanne Mccollum APRN - Last Filed: 12/27/24 02:09> History of Present Illness HPI Narrative: Patient is a 54-year-old female who presents to the ER after sustaining a leg injury. She reports she was walking down steps were ?damp when her foot slipped. Patient reports the lower half of her L leg went to side as she fell down. She reports she has fractured her left leg in the past, but did not require surgery. She endorses a history of high blood pressure, hyperlipidemia, and is prediabetic. Patient denies any decreased range of motion in her left hip, numbness/tingling, loss of continence, or decreased sensation to her lower extremity. <Suzanne Mccollum APRN - Last Filed: 12/27/24 02:09> Related Data Home Medications: Home Medications ?Medication ?Instructions ?Recorded ?Confirmed ?Last Taken ?Type amlodipine 5 mg tablet 5 mg PO DAILY 07/24/24 07/24/24 Unknown History atenolol 25 mg tablet 25 mg PO DAILY 07/24/24 07/24/24 Unknown History atorvastatin 20 mg tablet (Lipitor) 20 mg PO DAILY 07/24/24 07/24/24 Unknown History celecoxib 200 mg capsule (Celebrex) 200 mg PO DAILY 07/24/24 07/24/24 Unknown History cholecalciferol (vitamin D3) 50 50 mcg PO DAILY 07/24/24 07/24/24 Unknown History mcg (2,000 unit) capsule citalopram 20 mg tablet 20 mg PO DAILY 07/24/24 07/24/24 Unknown History ferrous sulfate 325 mg (65 mg 325 mg PO BID 07/24/24 07/24/24 Unknown History iron) tablet hydrochlorothiazide 25 mg tablet 25 mg PO DAILY 07/24/24 07/24/24 Unknown History loratadine 10 mg tablet (Claritin) 10 mg PO DAILY 07/24/24 07/24/24 Unknown History omeprazole magnesium 20 mg 20 mg PO DAILY 07/24/24 07/24/24 Unknown History tablet,delayed release (Prilosec OTC) <Suzanne Mccollum APRN - Last Filed: 12/27/24 02:09> Allergies/Adverse Reactions: Allergies Allergy/AdvReac Type Severity Reaction Status Date / Time cefaclor (From Ceclor) Allergy Mild Hives Verified 12/26/24 20:47 cephalexin (From Keflex) Allergy Mild Hives Verified 12/26/24 20:47 Sulfa (Sulfonamide Allergy Mild Hives Verified 12/26/24 20:47 Antibiotics) <Suzanne Mccollum APRN - Last Filed: 12/27/24 02:09> Review of Systems Review of Systems: All systems reviewed & are unremarkable except as noted in HPI and below <Suzanne Mccollum APRN - Last Filed: 12/27/24 02:09> Exam Narrative: GENERAL: Well appearing, well-nourished, non-toxic, in no acute distress. HEAD: Normocephalic, atraumatic. NECK: Supple. No adenopathy, no masses. RESPIRATORY: Airway patent, respirations nonlabored. Clear to auscultation bilaterally, no rales, rhonchi, wheezing. CARDIOVASCULAR: Regular rate and rhythm without murmurs, rubs, or gallops. Peripheral pulses 2+ and equal bilaterally. ABDOMINAL: Soft, nontender, nondistended, no hepatosplenomegaly. Normoactive BS. MUSCULOSKELETAL: Moves all extremities. Strength/ROM intact without gross deformities except for LLE. Left lower extremity swelling inferior to L outer knee. Moderate edema to exterior portion of L ankle. Decreased ROM in L ankle and L knee. SKIN: Warm, dry, normal color. No rashes. NEURO: A&O X3. Speech clear. Cranial nerves II-XII intact. No ataxic movements. PSYCHIATRIC: Appropriate mood and affect. Normal interaction. <Suzanne Mccollum APRN - Last Filed: 12/27/24 02:09> Course SHELL MOLD BONDING MACHINE OPERATOR/PA Physician Supervision SHELL MOLD BONDING MACHINE OPERATOR requested I assist with review of images which show fracture and questionable lucency. Made recommendations about splinting technique and I did assess patient at bedside whose pain is well controlled at this time as tech is preparing to apply splint. <Lyudmila De Leon MD - Last Filed: 12/28/24 22:46> Vital Signs Vital signs: Vital Signs Temperature 98.1 F 12/26/24 20:44 Pulse Rate 76 12/26/24 20:44 Respiratory Rate 13 12/26/24 20:44 Pulse Oximetry 100 12/26/24 20:44 Oxygen Delivery Room Air 12/26/24 20:44 Temperature 98.1 F 12/26/24 20:44 Pulse Rate 70 12/27/24 00:16 Respiratory Rate 11 L 12/27/24 00:16 Blood Pressure 112/67 12/27/24 00:16 Pulse Oximetry 100 12/27/24 00:16 Oxygen Delivery Room Air 12/26/24 20:44 <Suzanne Mccollum APRN - Last Filed: 12/27/24 02:09> Vital Signs Temperature 98.1 F 12/26/24 20:44 Pulse Rate 76 12/26/24 20:44 Respiratory Rate 13 12/26/24 20:44 Pulse Oximetry 100 12/26/24 20:44 Oxygen Delivery Room Air 12/26/24 20:44 Temperature 98.1 F 12/26/24 20:44 Pulse Rate 70 12/27/24 00:16 Respiratory Rate 11 L 12/27/24 00:16 Blood Pressure 112/67 12/27/24 00:16 Pulse Oximetry 100 12/27/24 00:16 Oxygen Delivery Room Air 12/26/24 20:44 <Lyudmila De Leon MD - Last Filed: 12/28/24 22:46> MDM - Extremity Injury (Lower) MDM Narrative Medical decision making narrative: Patient is a 54-year-old female who presents to the ER after sustaining a leg injury. She reports she was walking down steps were ?damp when her foot slipped. Patient reports the lower half of her L leg went to side as she fell down. She reports she has fractured her left leg in the past, but did not require surgery. She endorses a history of high blood pressure, hyperlipidemia, and is prediabetic. Patient denies any decreased range of motion in her left hip, numbness/tingling, loss of continence, or decreased sensation to her lower extremity. Labs Ordered: None necessary Imaging Ordered: Left ankle x-ray, left tib-fib x-ray Medications Ordered: [place] p.o., Zofran IV Results: Pt's L ankle x-ray indicates Lucency seen in the distal fibula is noted but no definite fracture is not seen. Follow-up and clinical correlation advised. soft tissue swelling over the lateral malleolus. Pt's tib/fib x-ray indicates Fracture in the proximal left fibula. No other definite fractures seen. Diagnosis: Proximal left fibular fracture, left ankle sprain Consults: orthopedics (outpatient) Patient Education/Shared MDM: Results of imaging shared with patient. She endorses improvement of symptoms following pain medication administration. Patient strongly advised to follow-up with orthopedics as soon as possible. She will be discharged home with a prescription for [place]. Strict return precautions provided. Patient verbalized understanding and is in agreement with plan. Vital signs stable at time of discharge. All questions answered. <Suzanne Mccollum APRN - Last Filed: 12/27/24 02:09> Differential Diagnosis Differential diagnosis: Likely ankle sprain and strain, acute internal derangement of knee, ankle fracture and other (Tibia fracture, fibula fracture) <Suzanne Mccollum APRN - Last Filed: 12/27/24 02:09> Imaging Data Attestation: I personally reviewed and interpreted this imaging study as follows: <Suzanne Mccollum APRN - Last Filed: 12/27/24 02:09> Radiologist's impression: Impressions Ankle X-Ray 12/26/24 21:50 IMPRESSION: No acute osseous abnormality left ankle. ADDENDUM: 12/26/24 2158 Lucency seen in the distal fibula is noted but no definite fracture is not seen. Follow-up and clinical correlation advised. Tibia/Fibula X-Ray 12/26/24 21:53 IMPRESSION: Fracture in the proximal left fibula. No other definite fractures seen. <Suzanne Mccollum APRN - Last Filed: 12/27/24 02:09> Discharge Plan Discharge Clinical Impression: Ankle sprain and strain, Fracture of left fibula <Suzanne Mccollum APRN - Last Filed: 12/27/24 02:09> Patient Disposition: Home <Suzanne Mccollum APRN - Last Filed: 12/27/24 02:09> Condition: Stable <Suzanne Mccollum APRN - Last Filed: 12/27/24 02:09> Instructions: Antibiotic Form, Leg Fracture (ED), P.R.I.C.E. Treatment (ED) <Suzanne Mccollum APRN - Last Filed: 12/27/24 02:09> Additional Instructions: Please return to the ER with any worsening symptoms. Follow-up with Orthopedic surgery as soon as possible. Take all medications as prescribed, including regularly scheduled medications. You may use [place] or Tylenol for pain control, along with ibuprofen. <Suzanne Mccollum APRN - Last Filed: 12/27/24 02:09> Patient Language: Spanish <Suzanne Mccollum APRN - Last Filed: 12/27/24 02:09> Prescriptions: New hydrocodone-acetaminophen 5-325 mg tablet 1 tablet PO Q6H PRN (Reason: pain) Qty: 20 0RF ondansetron 4 mg tablet,disintegrating 4 mg PO Q8H Qty: 20 0RF No Action atorvastatin [Lipitor] 20 mg tablet 20 mg PO DAILY omeprazole magnesium [Prilosec OTC] 20 mg tablet,delayed release (DR/EC) 20 mg PO DAILY citalopram 20 mg tablet 20 mg PO DAILY celecoxib [Celebrex] 200 mg capsule 200 mg PO DAILY cholecalciferol (vitamin D3) 50 mcg (2,000 unit) capsule 50 mcg PO DAILY loratadine [Claritin] 10 mg tablet 10 mg PO DAILY hydrochlorothiazide 25 mg tablet 25 mg PO DAILY ferrous sulfate 325 mg (65 mg iron) tablet 325 mg PO BID amlodipine 5 mg tablet 5 mg PO DAILY atenolol 25 mg tablet 25 mg PO DAILY levofloxacin 750 mg tablet 750 mg PO DAILY 7 Days Qty: 7 0RF <Suzanne Mccollum APRN - Last Filed: 12/27/24 02:09> Follow-up/Referrals: Milton Jeffery MD [Physician] - (orthopedic surgery) PHYSICIAN NOT ON STAFF,NONSTAFF [Primary Care Provider] - <Suzanne Mccollum APRN - Last Filed: 12/27/24 02:09> Time of Disposition: 02:05 <Suzanne Mccollum APRN - Last Filed: 12/27/24 02:09> 02:05 <Lyudmila De Leon MD - Last Filed: 12/28/24 22:46>
== END 2024-12-27 02:39 | disposition home or self-care (01) ==
PROVIDERS: Emergency Provider Registered Nurse
DX: S82.402A Unspecified fracture of shaft of left fibula, initial encounter for closed fracture (principal); S93.402A Sprain of unspecified ligament of left ankle, initial encounter; W10.9XXA Fall (on) (from) unspecified stairs and steps, initial encounter
CPT/HCPCS: 29505; 73590; 73610; 96374; 99284; A9270; J2405